=== PATIENT | male | born 1975 | race Two or more races ===

== ENCOUNTER 2019-10-13 18:12 | Emergency (ER) | payer MEDICAID, OTHER, SELFPAY ==
[~2019-10-13] VITALS: Ht 170.2 cm; Wt 85.5 kg
--- NOTE | 2019-10-13 18:43 | NUR ---
ASSUMED CARE OF PATIENT. PATIENT REPORTS HE HAS HAD A LOT OF STRESS IN HIS LIFE THE LAST THREE MONTHS. PT ALSO C/O HEADACHES AND BLURRED VISION THAT COMES AND GOES. PT HAS BEEN RUNNING AN OUTLET FOR STRESS. VS STABLE. FAMILY AT BEDSIDE. NO ACUTE DISTRESS NOTED. WILL CONTINUE TO MONITOR.
--- NOTE | 2019-10-13 18:44 | NUR ---
PE DENIES SI, HI
--- NOTE | 2019-10-13 19:03 | NUR ---
LAB IN ROOM
[2019-10-13 19:12] LABS: BASOPHILS # (AUTO) 0.04 x10^3/uL (0-0.1); BASOPHILS % (AUTO) 1 % (0-1); EOSINOPHILS # (AUTO) 0.17 x10^3/uL (0-0.4); EOSINOPHILS % (AUTO) 2 % (1-7); LYMPHOCYTES # (AUTO) 2.68 x10^3/uL (1-3.4); LYMPHOCYTES % (AUTO) 33 % (22-44); MD NO; MEAN CORPUSCULAR HEMOGLOBIN 31.2 pg (27.5-34.5); MEAN CORPUSCULAR HGB CONC 33.9 g/dL (33.2-36.2); MEAN CORPUSCULAR VOLUME 92.1 fL (81-97); MEAN PLATELET VOLUME 8.2 fL (7.4-10.4); MONOCYTES # (AUTO) 0.55 x10^3/uL (0.2-0.8); MONOCYTES % (AUTO) 7 % (2-9); NEUTROPHILS % (AUTO) 57 % (42-75); PLATELET COUNT 322 x10^3/uL (130-400); RED BLOOD COUNT 4.89 x10^6/uL (4.38-5.82); RED CELL DISTRIBUTION WIDTH 12.6 % (9.4-14.8)
[2019-10-13 19:20] LABS: ANION GAP 4 mmol/L (5-15); CALCIUM 9.1 mg/dL (8.5-10.1); CHLORIDE 107 mmol/L (98-107); CREATININE 0.85 mg/dL (0.7-1.3)
[2019-10-13 19:27] VITALS: BP 122/60
== END 2019-10-13 20:08 | disposition home or self-care (01) ==
LOC: ED 19:11
DX: F32.0 Major depressive disorder, single episode, mild (principal)
CPT/HCPCS: 36415; 80048; 82040; 85025; 99283; Q0177